=== PATIENT | female | born 1985 | race Caucasian/White ===

== ENCOUNTER 2018-03-24 09:58 | Inpatient (IN) | payer OTHER ==
[~2018-03-24] VITALS: Ht 172.7 cm; Wt 104.1 kg
[2018-03-25 18:00] VITALS: BP 151/84
[2018-03-25] MEDS ORDERED: NIFE30TA13 PO (18:08)
[2018-03-25] MEDS ORDERED: PREN1TAB60 PO (18:08)
[2018-03-25] MEDS: D5%-LACTATED RINGERS 1,000 ML IV SCH (18:08)
[2018-03-25] MEDS ORDERED: OXYTOCIN 30U/ 0.9% NaCL 500ML 500 ML IV ONE (18:08)
[2018-03-25] MEDS ORDERED: MISOPROSTOL 25 MCG TABLET VG PRN (18:30)
[2018-03-25] MEDS ORDERED: METOCLOPRAMIDE 5 MG/ML, 2ML IVPush PRN (18:30)
[2018-03-25] MEDS ORDERED: FENTANYL PF 100 MCG/2ML IV PRN (18:30)
[2018-03-25] MEDS ORDERED: ONDANSETRON 2MG/ML, 2ML IVPush PRN (18:30)
[2018-03-25] MEDS ORDERED: FENTANYL PF 100 MCG/2ML IVPush PRN (18:30)
[2018-03-25] MEDS ORDERED: TERBUTALINE 1 MG/ML, 1ML IVPush PRN (18:30)
[2018-03-25] MEDS ORDERED: SODIUM CITRATE/CITRIC ACID 30 ML UDC PO PRN (18:30)
[2018-03-25] MEDS: LACTATED RINGERS 1,000 ML IV SCH (18:31)
[2018-03-25 18:52] LABS: BASOPHILS # (AUTO) 0.05 x10^3/uL (0-0.1); BASOPHILS % (AUTO) 1 % (0-1); EOSINOPHILS # (AUTO) 0.05 x10^3/uL (0-0.4); EOSINOPHILS % (AUTO) 1 % (1-7); LYMPHOCYTES # (AUTO) 1.71 x10^3/uL (1-3.4); LYMPHOCYTES % (AUTO) 17 % (22-44); MD NO; MEAN CORPUSCULAR HEMOGLOBIN 28.9 pg (27.0-34.8); MEAN CORPUSCULAR HGB CONC 33.7 g/dL (32.4-35.8); MEAN CORPUSCULAR VOLUME 85.7 fL (80-100); MEAN PLATELET VOLUME 9.2 fL (7.4-10.4); MONOCYTES # (AUTO) 0.44 x10^3/uL (0.2-0.8); MONOCYTES % (AUTO) 5 % (2-9); NEUTROPHILS # (AUTO) 7.69 x10^3/uL (1.8-6.8); NEUTROPHILS % (AUTO) 77 % (42-75); PLATELET COUNT 306 x10^3/uL (130-400); RED CELL DISTRIBUTION WIDTH 14.1 % (9.6-15.2)
[2018-03-25] MEDS ORDERED: PLEASE ENTER ALLERGIES MC SCH (19:00)
[2018-03-25 19:02] LABS: ALANINE AMINOTRANSFERASE 15 U/L (12-78); ALBUMIN 2.5 g/dL (3.4-5.0); ANION GAP 9 mmol/L (5-15); CALCIUM 8.7 mg/dL (8.5-10.1); CHLORIDE 111 mmol/L (98-107); CREATININE 0.62 mg/dL (0.55-1.02)
[2018-03-25 19:05] LABS: ALKALINE PHOSPHATASE 118 U/L (45-117); BILIRUBIN, DIRECT < 0.1 mg/dL (0.1-0.2); BILIRUBIN,TOTAL 0.3 mg/dL (0.2-1.0); TOTAL PROTEIN 6.6 g/dL (6.4-8.2)
[2018-03-25 19:15] VITALS: BP 132/92
[2018-03-25 19:27] LABS: MICROSCOPIC INDICATED
[2018-03-25] MEDS ORDERED: CALCIUM CARBONATE 500 MG TAB.CHEW ONE (20:28)
[2018-03-25] MEDS: CALCIUM CARBONATE 500 MG TAB.CHEW PO PRN (20:30)
[2018-03-25] MEDS ORDERED: NEWBORN KIT ONE (20:57)
[2018-03-25] MEDS ORDERED: HYDROCORTISONE 25 MG SUPP PR PRN (22:00)
[2018-03-26] VITALS: BP 125/71
[2018-03-26] MEDS: D5%-LACTATED RINGERS 1,000 ML IV SCH ×3 (02:08→18:08)
[2018-03-26] MEDS: LACTATED RINGERS 1,000 ML IV SCH ×3 (02:08→16:18)
[2018-03-26] MEDS ORDERED: OXYTOCIN 30U/ 0.9% NaCL 500ML 500 ML ONE ×2 (05:52→21:01)
[2018-03-26] MEDS ORDERED: OXYTOCIN 30U/ 0.9% NaCL 500ML 500 ML IV PRN (08:45)
[2018-03-26] MEDS: CALCIUM CARBONATE 500 MG TAB.CHEW PO PRN ×2 (09:52→18:52)
[2018-03-26] MEDS ORDERED: niFEDipine ER 30 MG TABLET.ER ONE (13:59)
[2018-03-26] MEDS: niFEDipine ER 30 MG TABLET.ER PO SCH (14:01)
[2018-03-26] MEDS ORDERED: FENTANYL/BUPIV./NS/PF 250 ML EPIDCONT SCH ×2 (15:01→16:53)
[2018-03-26] MEDS ORDERED: FENTANYL PF 500 MCG, BUPIVACAINE/PF 0.5%, 30ML 62.5 ML in SODIUM CHLORIDE 0.9% 177.5 ML EPIDCONT SCH (15:30)
[2018-03-26] MEDS ORDERED: BUPIVACAINE 0.25% ONE (16:22)
[2018-03-26] MEDS ORDERED: FENTANYL PF 100 MCG/2ML ONE (16:22)
[2018-03-26] MEDS ORDERED: LACTATED RINGERS 1,000 ML IV SCH (16:53)
[2018-03-26] MEDS ORDERED: EPHEDRINE 50 MG/ML, 1ML IVPush PRN (17:00)
[2018-03-26] MEDS ORDERED: LACTATED RINGERS 1,000 ML IVBOLUS PRN (17:00)
[2018-03-26] MEDS ORDERED: ONDANSETRON 2MG/ML, 2ML IVPush PRN (17:00)
[2018-03-26] MEDS ORDERED: CALCIUM CARBONATE 500 MG TAB.CHEW ONE (18:50)
[2018-03-26] MEDS ORDERED: IBUPROFEN 600 MG TABLET ONE (21:01)
[2018-03-26] MEDS ORDERED: CARBOPROST TROMETHAMINE 250 MCG/ML, 1ML IM ONE ×2 (21:04→21:30)
[2018-03-26] MEDS ORDERED: DIPHENOXYLATE/ATROPINE TABLET ONE (21:14)
[2018-03-26] MEDS ORDERED: DIPHENOXYLATE/ATROPINE TABLET PO PRN (21:30)
[2018-03-26] MEDS ORDERED: MISOPROSTOL 200 MCG TABLET PR ONE (21:30)
[2018-03-26] MEDS ORDERED: ACETAMINOPHEN 325 MG TABLET PO PRN (22:00)
[2018-03-26] MEDS ORDERED: BISACODYL 10 MG SUPP PR PRN (22:00)
[2018-03-26] MEDS ORDERED: OXYcodone IR 5MG TABLET PO PRN (22:00)
[2018-03-26] MEDS ORDERED: GLYCERIN ADULT SUPP PR PRN (22:00)
[2018-03-26] MEDS ORDERED: ONDANSETRON 2MG/ML, 2ML IV PRN (22:00)
[2018-03-26] MEDS ORDERED: METOCLOPRAMIDE 5 MG/ML, 2ML IV PRN (22:00)
[2018-03-26] MEDS: OXYTOCIN 30U/ 0.9% NaCL 500ML 500 ML IV SCH (22:17)
[2018-03-26] MEDS: IBUPROFEN 600 MG TABLET PO PRN (22:18)
[2018-03-26] MEDS ORDERED: ONDANSETRON 2MG/ML, 2ML ONE (22:22)
[2018-03-26] MEDS ORDERED: LABETALOL 5MG/ML, 20ML IVPush PRN (23:30)
[2018-03-27 00:05] VITALS: BP 122/78
[2018-03-27 04:00] VITALS: BP 128/80
[2018-03-27] MEDS: IBUPROFEN 600 MG TABLET PO PRN ×3 (04:19→21:19)
[2018-03-27] MEDS: OXYTOCIN 30U/ 0.9% NaCL 500ML 500 ML IV SCH ×2 (07:42→17:42)
[2018-03-27 08:10] VITALS: BP 132/79
[2018-03-27] MEDS: DOCUSATE 100 MG CAPSULE PO PRN ×2 (10:19→21:19)
[2018-03-27] MEDS: PRENATAL VIT/IRON/FA 1 EACH TABLET PO SCH (10:19)
[2018-03-27] MEDS: niFEDipine ER 30 MG TABLET.ER PO SCH (10:19)
[2018-03-27] MEDS: OXYcodone/APAP 5/325MG TABLET PO PRN ×2 (10:24→21:19)
[2018-03-27 16:44] VITALS: BP 107/67
[2018-03-27 19:50] LABS: BASOPHILS # (AUTO) 0.04 x10^3/uL (0-0.1); BASOPHILS % (AUTO) 0 % (0-1); EOSINOPHILS # (AUTO) 0.03 x10^3/uL (0-0.4); EOSINOPHILS % (AUTO) 0 % (1-7); HEMOGRAM NOTE RECHECKED; LYMPHOCYTES # (AUTO) 1.65 x10^3/uL (1-3.4); LYMPHOCYTES % (AUTO) 13 % (22-44); MD NO; MEAN CORPUSCULAR HEMOGLOBIN 29.2 pg (27.0-34.8); MEAN CORPUSCULAR HGB CONC 33.5 g/dL (32.4-35.8); MEAN CORPUSCULAR VOLUME 87.3 fL (80-100); MEAN PLATELET VOLUME 8.8 fL (7.4-10.4); MONOCYTES # (AUTO) 0.64 x10^3/uL (0.2-0.8); MONOCYTES % (AUTO) 5 % (2-9); NEUTROPHILS # (AUTO) 10.62 x10^3/uL (1.8-6.8); NEUTROPHILS % (AUTO) 82 % (42-75); PLATELET COUNT 200 x10^3/uL (130-400); RED BLOOD COUNT 2.76 x10^6/uL (3.82-5.3); RED CELL DISTRIBUTION WIDTH 14.1 % (9.6-15.2)
[2018-03-27 20:45] VITALS: BP 124/76
[2018-03-27] MEDS: FERROUS GLUCONATE 324 MG TABLET PO SCH (23:57)
[2018-03-28 00:15] VITALS: BP 108/65
[2018-03-28] MEDS: OXYTOCIN 30U/ 0.9% NaCL 500ML 500 ML IV SCH (03:42)
[2018-03-28] MEDS: OXYcodone/APAP 5/325MG TABLET PO PRN (05:51)
[2018-03-28] MEDS: IBUPROFEN 600 MG TABLET PO PRN (05:51)
[2018-03-28 07:45] VITALS: BP 137/87
[2018-03-28] MEDS: FERROUS GLUCONATE 324 MG TABLET PO SCH (08:38)
[2018-03-28] MEDS: DOCUSATE 100 MG CAPSULE PO PRN (08:38)
[2018-03-28] MEDS: niFEDipine ER 30 MG TABLET.ER PO SCH (08:38)
[2018-03-28] MEDS: PRENATAL VIT/IRON/FA 1 EACH TABLET PO SCH (08:38)
[2018-03-28] MEDS ORDERED: IBUP-1222 PO (10:28)
[2018-03-28] MEDS ORDERED: DOCU-131 PO (10:30)
[2018-03-28] MEDS ORDERED: fergon PO (10:36)
== END 2018-03-28 11:15 | disposition home or self-care (01) | DRG 774 ==
LOC: LDIP 03-25 17:55 → 2NW 03-26 23:50
PROVIDERS: ADMIT Obstetrics & Gynecology; ATTEND Obstetrics & Gynecology
PROC: 10E0XZZ Delivery of Products of Conception, External Approach (ICD-10-PCS; principal; 2018-03-26)
PROC: 0KQM0ZZ Repair Perineum Muscle, Open Approach (ICD-10-PCS; 2018-03-26)
PROC: 10907ZC Drainage of Amniotic Fluid, Therapeutic from Products of Conception, Via Natural or Artificial Opening (ICD-10-PCS; 2018-03-26)
PROC: 3E0P7VZ Introduction of Hormone into Female Reproductive, Via Natural or Artificial Opening (ICD-10-PCS; 2018-03-26)
PROC: 3E0R3BZ Introduction of Anesthetic Agent into Spinal Canal, Percutaneous Approach (ICD-10-PCS; 2018-03-26)
PROC: 00HU33Z Insertion of Infusion Device into Spinal Canal, Percutaneous Approach (ICD-10-PCS; 2018-03-26)
DX: O16.4 Unspecified maternal hypertension, complicating childbirth (principal); O72.1 Other immediate postpartum hemorrhage; O70.1 Second degree perineal laceration during delivery; Z37.0 Single live birth; O99.214 Obesity complicating childbirth; E66.9 Obesity, unspecified; Z68.34 Body mass index [BMI] 34.0-34.9, adult; Z3A.40 40 weeks gestation of pregnancy; Z82.49 Family history of ischemic heart disease and other diseases of the circulatory system; Z83.3 Family history of diabetes mellitus; Z84.1 Family history of disorders of kidney and ureter
CPT/HCPCS: 36415; 80053; 81001; 82248; 82570; 83615; 84156; 84550; 85025; 86850; 86900; J2405; J2590; J3010; J7120